=== PATIENT | male | born 1995 | race Caucasian/White ===

== ENCOUNTER 2020-10-12 09:14 | Emergency (ER) | payer MEDICAID ==
[2020-10-12] MEDS ORDERED: Sodium Chloride 0.9% 10 ML Syringe FLUSH PRN (09:39)
--- NOTE | 2020-10-12 09:44 | EDM.PDOC ---
ED HPI GENERAL MEDICAL PROBLEM - General Chief Complaint: Abdominal Pain Stated Complaint: PAIN IN THE STOMACH/BACK Time Seen by Provider: 10/12/20 09:20 Source of Information: Reports: Patient History Limitations: Reports: No Limitations - History of Present Illness INITIAL COMMENTS - FREE TEXT/NARRATIVE: Patient presented to the ED because of abdominal pain which radiates to the RLQ and groin area. the pain is sharp,7/10, with associated nausea but no vomiting. He denies any urinary symptoms, changes in bowel movements. No fever, chills, cough/cold. Right Lower Abdomen Pain Score (Numeric/FACES): 8 - Related Data Allergies Allergy/AdvReac Type Severity Reaction Status Date / Time acetaminophen [From Vicodin] Allergy Itching Verified 10/12/20 09:24 hydrocodone [From Vicodin] Allergy Itching Verified 10/12/20 09:24 Home Meds: Home Meds Naproxen 500 mg PO BID #15 tablet 10/12/20 [Rx] Sulfamethoxazole/Trimethoprim [Bactrim Ds Tablet] 1 each PO BID #15 tablet 10/12/20 [Rx] Social & Family History - Family History Family Medical History: No Pertinent Family History - Tobacco Use Tobacco Use Status *Q: Current Every Day Tobacco User Years of Tobacco use: 10 Packs/Tins Daily: 1 - Caffeine Use Caffeine Use: Reports: Energy Drinks Other Caffeine Use: red bull occasionally - Recreational Drug Use Recreational Drug Use: No ED ROS GENERAL - Review of Systems Review Of Systems: See Below Constitutional: Reports: No Symptoms HEENT: Reports: No Symptoms Respiratory: Reports: No Symptoms Cardiovascular: Reports: No Symptoms Endocrine: Reports: No Symptoms GI/Abdominal: Reports: Abdominal Pain, Nausea : Reports: No Symptoms Musculoskeletal: Reports: No Symptoms Skin: Reports: No Symptoms Neurological: Reports: No Symptoms Psychiatric: Reports: No Symptoms ED EXAM, GI/ABD - Physical Exam Exam: See Below Exam Limited By: No Limitations General Appearance: Alert, No Apparent Distress Ears: Normal External Exam, Normal Canal Nose: Normal Inspection, Normal Mucosa Throat/Mouth: Normal Inspection, Normal Lips, Normal Teeth Head: Atraumatic, Normocephalic Neck: Normal Inspection, Supple, Non-Tender, Full Range of Motion Respiratory/Chest: No Respiratory Distress, Lungs Clear, Normal Breath Sounds Cardiovascular: Normal Peripheral Pulses, Regular Rate, Rhythm, No Edema, No Gallop, No JVD, No Murmur GI/Abdominal Exam: Normal Bowel Sounds, Soft, No Organomegaly, Other (suprapubic tenderness) Back Exam: Normal Inspection, Full Range of Motion Extremities: Normal Inspection, Normal Range of Motion, Non-Tender Neurological: Alert, Oriented, CN II-XII Intact, Normal Cognition, Normal Gait Psychiatric: Normal Affect, Normal Mood Course - Vital Signs Text/Narrative:: Lab/CT abd pelvis result was reviewed and discussed with patient NS 1 L bolus Zofran 4 mg IV x1 Toradol 30 mg IV x1 Last Recorded V/S: Last Vital Signs Temp 36.8 C 10/12/20 09:15 Pulse 70 10/12/20 09:15 Resp 18 10/12/20 09:15 BP 119/74 10/12/20 09:15 Pulse Ox 97 10/12/20 09:15 - Orders/Labs/Meds Orders: Active Orders 24 hr Category Date Time Status Sodium Chloride 0.9% [Normal Saline] 1,000 ml Med 10/12/20 09:45 Active IV ASDIRECTED Sodium Chloride 0.9% [Saline Flush] Med 10/12/20 09:39 Active 10 ml FLUSH ASDIRECTED PRN Saline Lock Insert [OM.PC] Routine Oth 10/12/20 09:39 Ordered Medication Orders Sodium Chloride (Normal Saline) 1,000 mls @ 999 mls/hr IV ASDIRECTED ALYCE Last Admin: 10/12/20 09:59 Dose: 999 mls/hr Documented by: LARON Sodium Chloride (Sodium Chloride 0.9% 10 Ml Syringe) 10 ml FLUSH ASDIRECTED PRN PRN Reason: Keep Vein Open Labs: Laboratory Tests 10/12/20 10/12/20 10/12/20 Range/Units 09:32 09:45 09:45 WBC 8.0 (3.2-10.1) x10-3/uL RBC 4.83 (3.90-5.90) x10(6)uL Hgb 14.5 (12.9-17.7) g/dL Hct 42.4 (38.3-50.1) % MCV 87.8 (80.8-98.7) fL MCH 30.0 (27.0-33.3) pg MCHC 34.2 (28.7-35.3) g/dL RDW 12.8 (12.4-15.0) % Plt Count 325 (117-477) x10(3)uL MPV 7.6 (6.7-11.0) fL Neut % (Auto) 79.1 H (40.3-71.8) % Lymph % (Auto) 14.2 L (15.8-45.3) % [place] % (Auto) 5.5 (5.5-15.2) % Eos % (Auto) 0.4 (0.1-6.8) % Baso % (Auto) 0.8 (0.3-3.8) % Neut # (Auto) 6.3 (1.7-6.9) x10-3/uL Lymph # (Auto) 1.1 (0.5-4.5) x10-3/uL [place] # (Auto) 0.4 (0.0-1.2) x10-3/uL Eos # (Auto) 0.0 (0.0-0.6) x10-3/uL Baso # (Auto) 0.1 (0.0-0.3) x10-3/uL Sodium 139 (135-145) mmol/L Potassium 3.8 (3.5-5.3) mmol/L Chloride 101 (100-110) mmol/L Carbon Dioxide 28 (21-32) mmol/L BUN 12 (7-18) mg/dL Creatinine 1.1 (0.70-1.30) mg/dL Est Cr Clr Drug Dosing 106.00 mL/min Estimated GFR (MDRD) > 60 (>60) BUN/Creatinine Ratio 10.9 (9-20) Glucose 105 (80-116) mg/dL Calcium 9.7 (8.6-10.2) mg/dL Total Bilirubin 1.1 (0.1-1.3) mg/dL AST 27 H (5-25) IU/L ALT 30 (12-36) U/L Alkaline Phosphatase 82 (56-112) IU/L Total Protein 8.1 H (6.0-8.0) g/dL Albumin 4.5 (3.5-5.2) g/dL Globulin 3.6 g/dL Albumin/Globulin Ratio 1.3 Amylase (25-115) U/L Lipase (73-393) U/L Urine Color Yellow (YELLOW) Urine Appearance Slightly cloudy (CLEAR) Urine pH 7.0 H (5.0-6.5) Ur Specific [place] 1.000 L (1.010-1.025) Urine Protein Negative (NEGATIVE) mg/dL Urine Glucose (UA) Normal (NORMAL) mg/dL Urine Ketones Negative (NEGATIVE) mg/dL Urine Occult Blood Negative (NEGATIVE) Urine Nitrite Negative (NEGATIVE) Urine Bilirubin Negative (NEGATIVE) Urine Urobilinogen Normal (NEGATIVE) mg/dL Ur Leukocyte Esterase Negative (NEGATIVE) Urine WBC 0-5 (0-5) Ur Squamous Epith Cells Few H (NS,R,O) Calcium Oxalate Crystal Few H (NS) Urine Bacteria Few H (NS) 10/12/20 10/12/20 Range/Units 09:45 09:45 WBC (3.2-10.1) x10-3/uL RBC (3.90-5.90) x10(6)uL Hgb (12.9-17.7) g/dL Hct (38.3-50.1) % MCV (80.8-98.7) fL MCH (27.0-33.3) pg MCHC (28.7-35.3) g/dL RDW (12.4-15.0) % Plt Count (117-477) x10(3)uL MPV (6.7-11.0) fL Neut % (Auto) (40.3-71.8) % Lymph % (Auto) (15.8-45.3) % [place] % (Auto) (5.5-15.2) % Eos % (Auto) (0.1-6.8) % Baso % (Auto) (0.3-3.8) % Neut # (Auto) (1.7-6.9) x10-3/uL Lymph # (Auto) (0.5-4.5) x10-3/uL [place] # (Auto) (0.0-1.2) x10-3/uL Eos # (Auto) (0.0-0.6) x10-3/uL Baso # (Auto) (0.0-0.3) x10-3/uL Sodium (135-145) mmol/L Potassium (3.5-5.3) mmol/L Chloride (100-110) mmol/L Carbon Dioxide (21-32) mmol/L BUN (7-18) mg/dL Creatinine (0.70-1.30) mg/dL Est Cr Clr Drug Dosing mL/min Estimated GFR (MDRD) (>60) BUN/Creatinine Ratio (9-20) Glucose (80-116) mg/dL Calcium (8.6-10.2) mg/dL Total Bilirubin (0.1-1.3) mg/dL AST (5-25) IU/L ALT (12-36) U/L Alkaline Phosphatase (56-112) IU/L Total Protein (6.0-8.0) g/dL Albumin (3.5-5.2) g/dL Globulin g/dL Albumin/Globulin Ratio Amylase 63 (25-115) U/L Lipase 61 L (73-393) U/L Urine Color (YELLOW) Urine Appearance (CLEAR) Urine pH (5.0-6.5) Ur Specific [place] (1.010-1.025) Urine Protein (NEGATIVE) mg/dL Urine Glucose (UA) (NORMAL) mg/dL Urine Ketones (NEGATIVE) mg/dL Urine Occult Blood (NEGATIVE) Urine Nitrite (NEGATIVE) Urine Bilirubin (NEGATIVE) Urine Urobilinogen (NEGATIVE) mg/dL Ur Leukocyte Esterase (NEGATIVE) Urine WBC (0-5) Ur Squamous Epith Cells (NS,R,O) Calcium Oxalate Crystal (NS) Urine Bacteria (NS) Meds: Medications Generic Name Dose Route Start Last Admin Trade Name Freq PRN Reason Stop Dose Admin Sodium Chloride 1,000 mls @ 999 mls/hr 10/12/20 09:45 10/12/20 09:59 Normal Saline IV 999 mls/hr ASDIRECTED ALYCE Administration Sodium Chloride 10 ml 10/12/20 09:39 Sodium Chloride 0.9% 10 Ml Syringe FLUSH ASDIRECTED PRN Keep Vein Open Discontinued Medications Generic Name Dose Route Start Last Admin Trade Name Freq PRN Reason Stop Dose Admin Iopamidol 100 ml 10/12/20 09:47 10/12/20 10:24 Iopamidol 755 Mg/Ml 100 Ml Bottle IV 10/12/20 09:48 100 ml . DIRECTED ONE Administration Ketorolac Tromethamine 30 mg 10/12/20 09:59 10/12/20 10:01 Ketorolac 30 Mg/Ml Sdv IVPUSH 10/12/20 10:00 30 mg ONETIME ONE Administration Ondansetron HCl 4 mg 10/12/20 09:59 10/12/20 10:01 Ondansetron 4 Mg/2 Ml Sdv IVPUSH 10/12/20 10:00 4 mg ONETIME ONE Administration Departure - Departure Time of Disposition: 11:15 Disposition: Home, Self-Care 01 Condition: Good Clinical Impression: Cystitis, Prostatitis - Discharge Information Prescriptions: Sulfamethoxazole/Trimethoprim [Bactrim Ds Tablet] 1 each PO BID #15 tablet Naproxen 500 mg PO BID #15 tablet Instructions: Interstitial Cystitis, Prostatitis, [id number] Referrals: PCP,None [Primary Care Provider] - Forms: ED Department Discharge Additional Instructions: Please read discharge instructions on cystitis and prostatitis Increase oral fluids Naproxen 500 mg twice daily for 1 week Bactrim DS twice daily for 7 days Follow up as needed Sepsis Event Note (ED) - Evaluation Sepsis Screening Result: No Definite Risk - Focused Exam Vital Signs: Vital Signs Temp Pulse Resp BP Pulse Ox 10/12/20 09:15 36.8 C 70 18 119/74 97 - My Orders Last 24 Hours: My Active Orders 10/12/20 09:39 Sodium Chloride 0.9% [Saline Flush] 10 ml FLUSH ASDIRECTED PRN Saline Lock Insert [OM.PC] Routine 10/12/20 09:45 Sodium Chloride 0.9% [Normal Saline] 1,000 ml IV ASDIRECTED - Assessment/Plan Last 24 Hours: My Active Orders 10/12/20 09:39 Sodium Chloride 0.9% [Saline Flush] 10 ml FLUSH ASDIRECTED PRN Saline Lock Insert [OM.PC] Routine 10/12/20 09:45 Sodium Chloride 0.9% [Normal Saline] 1,000 ml IV ASDIRECTED
[2020-10-12] MEDS ORDERED: Sodium Chloride 0.9% 1,000 ML IV SCH (09:45)
[2020-10-12] MEDS ORDERED: Iopamidol 755 Mg/ML 100 ML Bottle IV ONE (09:47)
[2020-10-12] MEDS ORDERED: Ketorolac 30 MG/ML SDV IVPUSH ONE (09:59)
[2020-10-12] MEDS ORDERED: Ondansetron 4 MG/2 ML SDV IVPUSH ONE (09:59)
--- NOTE | 2020-10-12 10:56 | CT ---
INDICATION: Right-sided abdominal pain for 3 days, worse today. CT ABDOMEN AND PELVIS WITH CONTRAST: Spiral 3.75 mm axial sections were obtained through the abdomen and pelvis with 100 mL [id number] at 2 mL/sec, with sagittal and coronal reconstructions 10/12/20 - no comparisons. Total exam DLP was 390.99 milligray-cm. The lower lung brooke and pleural spaces visualized appeared normal. The heart appeared normal in size. No pericardial effusion was seen. What appeared to be the appendix appeared normal on axial images 80 through 87. No evidence of free air or bowel obstruction was identified. There is a moderate amount of fluid and food materials in the stomach which should be correlated clinically. No definite gastric outlet obstruction was seen. The liver, gallbladder, adrenal glands, kidneys, spleen and pancreas appeared normal. No retroperitoneal mass was seen. Minimal retroperitoneal lymphadenopathy is noted which is nonspecific. There is thickening of the wall of the urinary bladder and somewhat enlarged prostate which measured 43 x 31 x 54 mm. No other organomegaly, mass lesions or free fluid collections were identified in the abdomen or pelvis. No evidence of inguinal or ventral hernia was seen. IMPRESSION: 1. Thickened wall of the urinary bladder could represent cystitis. 2. Prostate appears somewhat prominent, etiology indeterminate, however, a process such as prostatitis is suspected with low-density areas within the prostate. 3. CT abdomen and pelvis with IV contrast otherwise unremarkable. Report was called to Dr. Vick at 1046 hours 10/12/20. [facility]
== END 2020-10-12 11:16 | disposition home or self-care (01) ==
LOC: FB.ED 09:14
DX: N30.90 Cystitis, unspecified without hematuria (principal); N41.9 Inflammatory disease of prostate, unspecified; Z88.5 Allergy status to narcotic agent; Z72.0 Tobacco use; Z88.8 Allergy status to other drugs, medicaments and biological substances
CPT/HCPCS: 36415; 74177; 80053; 81001; 82150; 83690; 85025; 96374; 96375; 99284; J1885; J2405; J7030; Q9967

== ENCOUNTER 2022-10-02 07:09 | Emergency (ER) | payer OTHER | END 2022-10-02 08:15 | disposition home or self-care (01) | LOC: FB.ED 07:09 | DX: S61.211A Laceration without foreign body of left index finger without damage to nail, initial encounter (principal); S61.213A Laceration without foreign body of left middle finger without damage to nail, initial encounter; Z88.5 Allergy status to narcotic agent; W26.0XXA Contact with knife, initial encounter | CPT/HCPCS: 12001; 99282 ==